=== PATIENT | female | born 1940 | race Caucasian/White ===

== ENCOUNTER → 2018-12-21 12:38 | Outpatient (CLI) | payer MEDICARE | END | disposition home or self-care (01) | LOC: D.US 12:38 | DX: E04.1 Nontoxic single thyroid nodule (principal) ==

== ENCOUNTER 2021-03-25 14:57 | Inpatient (IN) | payer MEDICARE ==
[~2021-03-25] VITALS: Ht 162.6 cm; Wt 68.2 kg
--- NOTE | 2021-03-25 15:00 | NUR ---
PT ARRIVES AT FACILITY WITH CARDIZEM GTT INFUSING.
[2021-03-25 15:32] LABS: BASOPHILS 0.8 % (0-2); HEMATOCRIT 43.9 % (36.0-48.0); HEMOGLOBIN 14.7 g/dL (12-16); IMMATURE GRANULOCYTES 0.2 % (0-5); LYMPHOCYTE ABS# 0.76 10x3/uL (1.18-3.74); LYMPHOCYTES 14.7 % (15-50); MCH 30.1 pg (26.0-34.0); MCHC 33.5 g/dL (31.0-37.0); MEAN PLATELET VOLUME 11.4 fL (7.4-10.4); MONOCYTES 11.2 % (2-11); NEUTROPHIL ABS# 3.74 10x3/uL (1.56-6.13); NEUTROPHILS 72.1 % (40-80); PLATELET COUNT 192 10x3/uL (130-400); RBC 4.88 10x6/uL (4.00-5.40); RDW 12.8 % (11.5-14.5); WBC 5.2 10x3/uL (4.8-10.8)
[2021-03-25 15:41] LABS: APTT 45.6 SECONDS (22.8-39.4); INR 1.14 (0.85-1.17); PROTIME 13.5 SECONDS (11.6-15.0)
[2021-03-25 15:57] LABS: CALC OSMOLALITY 288 mosm/kg (275-300); CALCIUM 9.5 mg/dL (8.5-10.1); CARBON DIOXIDE 27.8 mmol/L (21.0-32.0); CHLORIDE - SERUM 106 mmol/L (98-107); CREATININE - SERUM 0.9 mg/dL (0.6-1.3); GLUCOSE 116 mg/dL (74-106); POTASSIUM - SERUM 4.1 mmol/L (3.5-5.1); SODIUM 144 mmol/L (136-145); UREA NITROGEN 16 mg/dL (7-18); eGFR NON AFRICAN AMERICAN 63 mL/min (90-120)
[2021-03-25 16:10] LABS: ALBUMIN 3.7 g/dL (3.4-5.0); ALKALINE PHOSPHATASE 88 U/L (30-120); ALT (SGPT) 26 U/L (10-68); BILIRUBIN - TOTAL 0.63 mg/dL (0.2-1.3); CKMB 1.6 U/L (0.0-3.6); CREATINE KINASE 28 UL (21-215); MAGNESIUM - SERUM 2.2 mg/dL (1.8-2.4); PROTEIN - SERUM 7.7 g/dL (6.4-8.2)
[2021-03-25] MEDS ORDERED: NAMENDA5 MG PO (20:45)
[2021-03-25] MEDS ORDERED: MOBIC7.5 MG PO (20:45)
[2021-03-25] MEDS ORDERED: OMEPRAZOLE20 M1 PO (20:46)
[2021-03-25] MEDS ORDERED: MACRODANTIN100 MG PO (20:46)
[2021-03-25] MEDS ORDERED: EFFEXOR XR150 MG PO (20:47)
[2021-03-25] MEDS ORDERED: ULTRAM50 MG PO (20:48)
[2021-03-25] MEDS ORDERED: TRAZODONE HCL100 MG PO (20:48)
[2021-03-25] MEDS ORDERED: HYDROXYZINE HCL10 MG PO (20:48)
[2021-03-25 22:21] VITALS: BP 130/75; BMI 25.8
[2021-03-25 22:24] VITALS: BP 130/75
[2021-03-25 22:49] LABS: CKMB 1.5 U/L (0.0-3.6); CREATINE KINASE 35 UL (21-215); TROPONIN-I 0.039 ng/mL (0.000-0.060)
--- NOTE | 2021-03-25 23:31 | NUR ---
PT ARRIVED VIASTRETCHER TO RM [id number] AT 2009 HRS. NO DISTRESS NOTED. PT INCONTINENT OF URINE UPON ARRIVAL. INCONTINENT CARE DONE. PT ALERT, ORIENTED TO PERSON AND PLACE. REORIENTED TO TIME. IV TO LFA WITH CARDIZEM AT 5MG/HR. IV PATENT. ADMISSION ASSESSMENT, HISTORY AND HOME MED LIST COMPLETED BY 2245 HRS. VSS. CAF PER CM HR 85. LUNGS DIMINSIHED IN BASES BILAT. DAUGHTER AT BEDSIDE. PM TRAZSADONE ADMINISTERED PER PROTOCOL. SR UP X2, CALL LIGHT WITHIN REACH.
--- NOTE | 2021-03-26 01:17 | NUR ---
PT RESTING WITH EYES CLOSED. RESP EVEN AND REGULAR. SR UP X2,CALL LIGHT WITHIN REACH AND DAUGHTER AT BEDSIDE.
--- NOTE | 2021-03-26 03:25 | NUR ---
EKGDONE. PT PULLED IV OUT WITH CATHETER INTACT. PT CLEANED. NEW IV #22 TO L HAND STARTED WITH ATTEMPT X1. PT TOLERATED PROCEDURE WELL. CARDIZEM DRIP RESTARTED AT 5MG/HR. SR UP X2, CALL LIGHT WITHIN REACH AND DAUGHTER AT BEDSIDE.
[2021-03-26 05:22] VITALS: BP 158/78
--- NOTE | 2021-03-26 06:32 | NUR ---
PT ONVERTED TO SR HR 81 AT 0610 HRS. VSS THROUGHOUT NIGHT. PT RESTED WELL DURING SHIFT. ASSISTED PT TO BR AFTER AM MED PASS. PT VOIDED MODERATE AMOUNT OF URINE AND HAS A SMALL BM. ASSISTED BACK TO BED. GAIT SLIGHTLY UNSTEADY. NEEDS MET;WILL CONTINUE TO MONITOR.
--- NOTE | 2021-03-26 07:00 | NUR ---
RECEIVED REPORT. ASSUMED CARE OF PATIENT. CALL LIGHT WITHIN REACH. PATIENT LYING IN BED WITH EYES OPEN, ATTENTION TOWARD TELEVISION. PATIENT DAUGHTER AT BEDSIDE. PATIENT IS NOW IN SR, ON CARDIZEM GTT. WHITE BOARD UPDATED, BEDSIDE SHIFT REPORT COMPLETE. MED REQ CORRECTED AT THIS TIME. DENIES NEEDS. NO DISTRESS.
[2021-03-26 08:00] LABS: BASOPHILS 0.7 % (0-2); EOSINOPHILS 1.4 % (0-7); HEMATOCRIT 41.8 % (36.0-48.0); HEMOGLOBIN 14.3 g/dL (12-16); LYMPHOCYTE ABS# 0.69 10x3/uL (1.18-3.74); LYMPHOCYTES 16.5 % (15-50); MCH 30.4 pg (26.0-34.0); MCHC 34.2 g/dL (31.0-37.0); MCV 88.9 fL (80.0-100.0); MEAN PLATELET VOLUME 12.1 fL (7.4-10.4); MONOCYTES 13.9 % (2-11); NEUTROPHIL ABS# 2.82 10x3/uL (1.56-6.13); NEUTROPHILS 67.5 % (40-80); PLATELET COUNT 184 10x3/uL (130-400); RDW 12.9 % (11.5-14.5); WBC 4.2 10x3/uL (4.8-10.8)
[2021-03-26 08:38] VITALS: Ht 162.6 cm; Wt 68.2 kg
[2021-03-26 08:59] LABS: ALBUMIN 3.2 g/dL (3.4-5.0); ALKALINE PHOSPHATASE 75 U/L (30-120); ALT (SGPT) 21 U/L (10-68); BILIRUBIN - TOTAL 0.71 mg/dL (0.2-1.3); CALC OSMOLALITY 286 mosm/kg (275-300); CALCIUM 8.8 mg/dL (8.5-10.1); CARBON DIOXIDE 22.8 mmol/L (21.0-32.0); CHLORIDE - SERUM 106 mmol/L (98-107); CHOL - HDL RATIO 3.1 ratio (2.3-4.1); CHOLESTEROL, TOTAL 190 mg/dL (0-200); CKMB 1.6 U/L (0.0-3.6); CREATINE KINASE 51 UL (21-215); CREATININE - SERUM 0.9 mg/dL (0.6-1.3); GLUCOSE 120 mg/dL (74-106); HDL CHOLESTEROL 61 mg/dL (32-96); LDL CHOLESTEROL 114 mg/dL (0-100); LDL-HDL RATIO 1.9 ratio (1.5-3.5); MAGNESIUM - SERUM 2.1 mg/dL (1.8-2.4); PHOSPHOROUS 3.5 mg/dL (2.5-4.9); POTASSIUM - SERUM 3.5 mmol/L (3.5-5.1); PROTEIN - SERUM 6.9 g/dL (6.4-8.2); SODIUM 142 mmol/L (136-145); TRIGLYCERIDE 77 mg/dL (30-200); TROPONIN-I 0.037 ng/mL (0.000-0.060); eGFR NON AFRICAN AMERICAN 63 mL/min (90-120)
[2021-03-26 09:00] LABS: UREA NITROGEN 21 mg/dL (7-18)
--- NOTE | 2021-03-26 09:03 | NUR ---
CARDIZEM DRIP OFF AT THIS TIME.
[2021-03-26 10:31] LABS: CKMB 2.2 U/L (0.0-3.6); CREATINE KINASE 97 UL (21-215); TROPONIN-I 0.024 ng/mL (0.000-0.060)
[2021-03-26 22:25] VITALS: BP 189/99
[2021-03-27] VITALS: BP 152/89
--- NOTE | 2021-03-27 04:17 | NUR ---
I have reviewed this patient and I concur with the Shift Assessment completed by the Licensed Practical Nurse today this shift.
[2021-03-27 05:18] LABS: BASOPHILS 0.9 % (0-2); EOSINOPHILS 2.4 % (0-7); HEMATOCRIT 38.1 % (36.0-48.0); HEMOGLOBIN 12.9 g/dL (12-16); LYMPHOCYTE ABS# 0.88 10x3/uL (1.18-3.74); LYMPHOCYTES 26.5 % (15-50); MCH 29.8 pg (26.0-34.0); MCHC 33.9 g/dL (31.0-37.0); MEAN PLATELET VOLUME 11.8 fL (7.4-10.4); MONOCYTES 14.2 % (2-11); NEUTROPHIL ABS# 1.86 10x3/uL (1.56-6.13); PLATELET COUNT 187 10x3/uL (130-400); RBC 4.33 10x6/uL (4.00-5.40); RDW 12.7 % (11.5-14.5); WBC 3.3 10x3/uL (4.8-10.8)
[2021-03-27 05:36] LABS: ANION GAP 12.1 mmol/L (8-16); CALCIUM 9.1 mg/dL (8.5-10.1); CARBON DIOXIDE 27.5 mmol/L (21.0-32.0); CREATININE - SERUM 0.9 mg/dL (0.6-1.3); MAGNESIUM - SERUM 2.2 mg/dL (1.8-2.4); PHOSPHOROUS 4.1 mg/dL (2.5-4.9); POTASSIUM - SERUM 3.6 mmol/L (3.5-5.1)
[2021-03-27 08:00] VITALS: BP 167/89
[2021-03-27] MEDS ORDERED: ELIQUIS5 MG PO (09:26)
[2021-03-27] MEDS ORDERED: TIAZAC120 MG PO (09:27)
--- NOTE | 2021-03-27 10:52 | NUR ---
IV AND TELEMETRY DCD. DC PLANS GIVEN TO SON. UNDERSTANDING VOICED. ESCORTED TO CAR BY W/C.
== END 2021-03-27 10:53 | disposition home or self-care (01) | DRG 310 ==
LOC: D.ER 14:57 → D.M2 19:14
PROVIDERS: Family Medicine; ADMIT Emergency Medicine; ATTEND Emergency Medicine
DX: I48.91 Unspecified atrial fibrillation (principal); I10 Essential (primary) hypertension; K21.9 Gastro-esophageal reflux disease without esophagitis; M19.90 Unspecified osteoarthritis, unspecified site; F41.9 Anxiety disorder, unspecified; F03.90 Unspecified dementia, unspecified severity, without behavioral disturbance, psychotic disturbance, mood disturbance, and anxiety